=== PATIENT | female | born 1975 ===

== ENCOUNTER 2017-05-02 11:44 | Emergency (ER) | payer OTHER ==
[2017-05-02 11:59] VITALS: TEMP 98
--- NOTE | 2017-05-02 12:48 | ED PDOC ---
Upper Extremity Pain/Injury Time Seen by Provider: 05/02/17 12:30 Chief Complaint (Nursing): Upper Extremity Problem/Injury Chief Complaint (Provider): Left shoulder pain History Per: Patient, Family (son) History/Exam Limitations: language barrier (translated by son) Onset/Duration Of Symptoms: Days (x4) Current Symptoms Are (Timing): Still Present Quality: "Pain" Exacerbating Factor(s): Nothing Additional History Per: Patient Additional Complaint(s): Sanam Woods is a 42 year old female, with no significant past medical history, who presents to the emergency department accompanied by son complaining of non traumatic left shoulder pain onset for x4 days. She denies any injuries or doing any heavy lifting. She hasn't taken any medication for pain. Patient also reports having a lesion to the left shoulder for x10 yrs that will occasionally cause pain. She denies any other medical complaints. PMD: None provided. Past Medical History Reviewed: Historical Data, Nursing Documentation, Vital Signs Vital Signs: Last Vital Signs Temp 98.0 F 05/02/17 11:51 Pulse 87 05/02/17 11:51 Resp 16 05/02/17 11:51 BP 132/77 05/02/17 11:51 Pulse Ox 98 05/02/17 11:51 - Medical History PMH: Asthma - Surgical History Surgical History: No Surg Hx - Family History Family History: States: Unknown Family Hx - Social History Current smoker - smoking cessation education provided: No Alcohol: None Drugs: Denies - Home Medications Home Medications: Ambulatory Orders Medication Instructions Recorded Cyclobenzaprine [Flexeril] 10 mg PO TID #30 tab 05/02/17 - Allergies Allergies/Adverse Reactions: Allergies Allergy/AdvReac Type Severity Reaction Status Date / Time No Known Allergies Allergy Verified 05/02/17 11:55 Review of Systems ROS Statement: Except As Marked, All Systems Reviewed And Found Negative Musculoskeletal: Positive for: Shoulder Pain (non traumatic left. ) Skin: Positive for: Lesions (left shoulder) Physical Exam - Reviewed Nursing Documentation Reviewed: Yes Vital Signs Reviewed: Yes - Physical Exam Appears: Positive for: Non-toxic, No Acute Distress Head Exam: Positive for: ATRAUMATIC, NORMAL INSPECTION, NORMOCEPHALIC Skin: Positive for: Normal Color, Warm, Dry Eye Exam: Positive for: Normal appearance Neck: Positive for: Painless ROM Pulses-Radial (L): 2+ Pulses-Radial (R): 2+ Extremity: Positive for: Normal ROM (No reduced active or passive. No reduced flexion or extension. Normal rotation of pronation and supination in upper extremities.), Tenderness (left shoulder lateral edge of deltoid tenderness that radiates to left scapula.), Other (1x0.5cm keratotic lesion on dorsal side of left shoulder. ). Negative for: Deformity, Swelling Neurologic/Psych: Positive for: Alert, Oriented - ECG O2 Sat by Pulse Oximetry: 98 (RA) Pulse Ox Interpretation: Normal Medical Decision Making Medical Decision Making: Initial Impression: Tendonitis Initial Plan: --Flexeril 10 mg PO --Toradol 60 mg IM --Tylenol 325mg tab 650 mg PO --Shoulder left [RAD] --Reevaluation --Will order shoulder xray to rule out acute injuries. 14:16 Shoulder X-Ray show no fracture or dislocation. ~ Scribe Attestation: Documented by Erasto Guevara, acting as a scribe for Naman Hui PA-C. Provider Scribe Attestation: All medical record entries made by the Scribe were at my direction and personally dictated by me. I have reviewed the chart and agree that the record accurately reflects my personal performance of the history, physical exam, medical decision making, and the department course for this patient. I have also personally directed, reviewed, and agree with the discharge instructions and disposition. Disposition - Clinical Impression Clinical Impression: Shoulder pain, Shoulder pain, left - Disposition Referrals: Cresencio Fitch III, MD [Staff Provider] - Disposition: Routine/Home Disposition Time: 14:55 Condition: GOOD Additional Instructions: wear sling as often as possible, not necessary while sleeping follow up with ortho referral as reflcted below Prescriptions: Cyclobenzaprine [Flexeril] 10 mg PO TID #30 tab Instructions: Shoulder Pain (DC) Forms: [facility] [employer] (Indonesian) Print Language: ROMANIAN
--- NOTE | 2017-05-02 14:17 | RAD ---
PROCEDURE: Radiographs of the Left Shoulder HISTORY: r/o sep COMPARISON: No prior. FINDINGS: BONES: Normal. No fracture. JOINTS: Normal. Glenohumeral and acromioclavicular joints preserved. No osteoarthritis. SOFT TISSUES: Normal. OTHER FINDINGS: None. IMPRESSION: Normal radiographs of the left shoulder.
[2017-05-02 14:53] VITALS: BP 128/78; PULSE 70; RESP 18
[2017-05-02 14:54] VITALS: O2SAT 98
== END 2017-05-02 14:53 | disposition home or self-care (01) ==
LOC: H.ER 11:44
DX: M25.512 Pain in left shoulder (principal); J45.909 Unspecified asthma, uncomplicated
CPT/HCPCS: 73030; 81025; 96372; 99285; J1885

== ENCOUNTER 2017-07-23 12:16 | Emergency (ER) | payer SELFPAY ==
--- NOTE | 2017-07-23 12:37 | ED PDOC ---
HPI: Female Pain Time Seen by Provider: 07/23/17 12:31 Chief Complaint (Nursing): Female Genitourinary History Per: Patient Onset/Duration Of Symptoms: Days (1) Current Symptoms Are (Timing): Still Present Severity: Mild Pain Scale Rating Of: 2 Quality Of Discomfort: Cramping Additional Complaint(s): Vaginal bleeding assoc with lower abd cramping since yesterday. Found out yesterday she is approx 4 weeks Abnormal Vaginal Bleeding: Yes Past Medical History Vital Signs: Last Vital Signs Temp 98.2 F 07/23/17 12:20 Pulse 81 07/23/17 12:20 Resp 16 07/23/17 12:20 BP 110/72 07/23/17 12:20 Pulse Ox 96 07/23/17 12:20 - Medical History PMH: Asthma - Family History Family History: States: Unknown Family Hx - Home Medications Home Medications: Ambulatory Orders Medication Instructions Recorded Cyclobenzaprine [Flexeril] 10 mg PO TID #30 tab 05/02/17 - Allergies Allergies/Adverse Reactions: Allergies Allergy/AdvReac Type Severity Reaction Status Date / Time No Known Allergies Allergy Verified 07/23/17 12:20 Review of Systems Constitutional: Negative for: Fever Gastrointestinal: Positive for: Abdominal Pain Genitourinary Female: Positive for: Vaginal Bleeding Musculoskeletal: Negative for: Back Pain Physical Exam - Physical Exam Appears: Positive for: Non-toxic, No Acute Distress Skin: Positive for: Normal Color, Warm, DRY Gastrointestinal/Abdominal: Positive for: Bowel Sounds, Soft. Negative for: Tenderness Pelvic Exam: Positive for: External Exam Normal, Blood. Negative for: Mass, Tender Adnexa, Tender Uterus - Laboratory Results Result Diagrams: 07/23/17 13:05 - ECG O2 Sat by Pulse Oximetry: 96 Disposition - Clinical Impression Clinical Impression: Threatened miscarriage - Patient ED Disposition Is Patient to be Admitted: No Counseled Patient/Family Regarding: Studies Performed, Diagnosis, Need For Followup - Disposition [facility]errals[facility] [[facility]] Disposition: Routine/Home Disposition Time: 14:39 Condition: FAIR Additional Instructions: Regressa al emergencia para repetir la prueba de freddie Instructions: Threatened Miscarriage Forms: [employer] (Macedonian) Print Language: TURKISH
[2017-07-23 13:18] LABS: BASO % 0.5 % (0.0-2.0); EOS # 0.7 K/uL (0.0-0.7); EOS % 7.5 % (0.0-4.0); HEMOGLOBIN 13.4 g/dL (12.0-16.0); LYMPH # 2.8 K/uL (1.0-4.3); LYMPH % 29.2 % (20.0-40.0); MEAN CORPUSCULAR HEMOGLOBIN 29.9 pg (27.0-31.0); MEAN CORPUSCULAR HGB CONC 33.6 g/dL (33.0-37.0); MEAN PLATELET VOLUME 8.3 fl (7.2-11.7); MONO # 0.8 K/uL (0.0-0.8); NEUT # 5.3 K/uL (1.8-7.0); NEUT % 54.8 % (50.0-75.0); RBC 4.5 Mil/uL (3.80-5.20); RED CELL DISTRIBUTION WIDTH 12.8 % (11.5-14.5); WHITE BLOOD COUNT 9.7 K/uL (4.8-10.8)
--- NOTE | 2017-07-23 14:27 | US ---
PROCEDURE: OB Pelvic Ultrasound HISTORY: r/o ectopic COMPARISON: None available. FINDINGS: UTERUS: Uterus measures 9.9 x 4.6 x 5.0 cm. Anteverted. Normal in size and appearance. Endometrium measures 9 mm. No intrauterine gestational sac. CERVIX: Measures 4.6 cm. Long and closed. No cervical abnormality seen. RIGHT OVARY: Not visualized LEFT OVARY: Measures 3.2 x 2.8 x 2.4 cm. No solid mass. Normal flow. FREE FLUID: None. OTHER FINDINGS: None. IMPRESSION: No intrauterine visualized. Findings may represent early normal/abnormal with ectopic not excluded. Close clinical follow-up with serial pelvic sonography and serum beta HCG levels is recommended.
[2017-07-23 14:50] VITALS: BP 110/74; PULSE 74; RESP 20; TEMP 98; O2SAT 98
== END 2017-07-23 14:49 | disposition home or self-care (01) ==
LOC: H.ER 12:16
DX: N93.9 Abnormal uterine and vaginal bleeding, unspecified (principal); O20.0 Threatened abortion; O99.511 Diseases of the respiratory system complicating pregnancy, first trimester; J45.909 Unspecified asthma, uncomplicated; Z3A.01 Less than 8 weeks gestation of pregnancy

== ENCOUNTER 2017-07-25 09:34 | Emergency (ER) | payer SELFPAY ==
--- NOTE | 2017-07-25 12:23 | ED PDOC ---
HPI: Female Pain Time Seen by Provider: 07/25/17 09:45 Chief Complaint (Nursing): Abnormal Labs Chief Complaint (Provider): Abnormal Labs History Per: Patient History/Exam Limitations: no limitations Onset/Duration Of Symptoms: Days (x 5) Current Symptoms Are (Timing): Still Present Additional Complaint(s): 42 year old female presents to the ED with abnormal vaginal bleeding and for repeat bloodwork. She just found out she was 4 weeks . Patient was seen 2 days ago and had a Beta-HCG of 29. She reports vaginal spotting and is here for repeat HCG. PMD: [facility] Abnormal Vaginal Bleeding: Yes Last Menstral Period: 06/24/2017 Past Medical History Reviewed: Historical Data, Nursing Documentation, Vital Signs Vital Signs: Last Vital Signs Temp 98.1 F 07/25/17 09:39 Pulse 71 07/25/17 09:39 Resp 19 07/25/17 09:39 BP 102/62 07/25/17 09:39 Pulse Ox 97 07/25/17 09:39 - Medical History PMH: Asthma - Surgical History Surgical History: No Surg Hx - Family History Family History: States: Unknown Family Hx - Home Medications Home Medications: Ambulatory Orders Medication Instructions Recorded Cyclobenzaprine [Flexeril] 10 mg PO TID #30 tab 05/02/17 - Allergies Allergies/Adverse Reactions: Allergies Allergy/AdvReac Type Severity Reaction Status Date / Time No Known Allergies Allergy Verified 07/23/17 12:20 Physical Exam - Reviewed Nursing Documentation Reviewed: Yes Vital Signs Reviewed: Yes - Physical Exam Appears: Positive for: Non-toxic, No Acute Distress Head Exam: Positive for: ATRAUMATIC, NORMAL INSPECTION, NORMOCEPHALIC Skin: Positive for: Normal Color, Warm, Dry Eye Exam: Positive for: EOMI, Normal appearance, PERRL Neck: Positive for: Normal, Painless ROM, Supple Cardiovascular/Chest: Positive for: Regular Rate, Rhythm. Negative for: Murmur Respiratory: Positive for: Normal Breath Sounds. Negative for: Respiratory Distress Gastrointestinal/Abdominal: Positive for: Normal Exam, Soft. Negative for: Tenderness Neurologic/Psych: Positive for: Alert, Oriented - ECG O2 Sat by Pulse Oximetry: 97 (RA) Pulse Ox Interpretation: Normal Medical Decision Making Medical Decision Making: Time; 10:24 Impression miscarriage Initial Plan: --Beta- HCG Beta-HCG is 12. rh pos --Discussed results with patient and explained that she is having ongoing miscarriage. Also advised she should follow up with [facility] in 2 days, until Beta-HCG goes down to 0. Scribe Attestation: Documented by Keysha Singh, acting as a scribe for Essie Elkins MD Provider Scribe Attestation: All medical record entries made by the Scribe were at my direction and personally dictated by me. I have reviewed the chart and agree that the record accurately reflects my personal performance of the history, physical exam, medical decision making, and the department course for this patient. I have also personally directed, reviewed, and agree with the discharge instructions and disposition. Disposition - Clinical Impression Clinical Impression: Miscarriage - Patient ED Disposition Is Patient to be Admitted: No Counseled Patient/Family Regarding: Studies Performed, Diagnosis, Need For Followup - Disposition Referrals: [facility] [Outside] [facility] [Outside] Disposition: Routine/Home Disposition Time: 11:00 Condition: IMPROVED Additional Instructions: follow up in the [facility] in 2 days return to the ED with any worsening or concerning symptoms Instructions: Miscarriage Forms: [employer] (Uzbek) Print Language: URDU
[2017-07-25 12:28] VITALS: BP 110/68; PULSE 70; RESP 16; TEMP 98.2
[2017-07-25 12:34] VITALS: O2SAT 97
== END 2017-07-25 12:28 | disposition home or self-care (01) ==
LOC: H.ER 09:34
DX: O03.9 Complete or unspecified spontaneous abortion without complication (principal); Z3A.01 Less than 8 weeks gestation of pregnancy; J45.909 Unspecified asthma, uncomplicated; O99.511 Diseases of the respiratory system complicating pregnancy, first trimester

== ENCOUNTER 2017-11-07 11:25 | Emergency (ER) | payer SELFPAY ==
[2017-11-07 15:50] LABS: BASO # 0.1 K/uL (0.0-0.2); BASO % 0.7 % (0.0-2.0); EOS # 0.9 K/uL (0.0-0.7); EOS % 9.7 % (0.0-4.0); HEMOGLOBIN 13.4 g/dL (12.0-16.0); LYMPH # 2.7 K/uL (1.0-4.3); LYMPH % 29.1 % (20.0-40.0); MEAN CELL VOLUME 88.9 fl (81.0-99.0); MEAN CORPUSCULAR HEMOGLOBIN 29.8 pg (27.0-31.0); MEAN CORPUSCULAR HGB CONC 33.6 g/dL (33.0-37.0); MEAN PLATELET VOLUME 8.6 fl (7.2-11.7); MONO # 0.7 K/uL (0.0-0.8); MONO % 7.1 % (0.0-10.0); NEUT # 4.9 K/uL (1.8-7.0); NEUT % 53.4 % (50.0-75.0); RBC 4.48 Mil/uL (3.80-5.20); RED CELL DISTRIBUTION WIDTH 13.1 % (11.5-14.5); WHITE BLOOD COUNT 9.2 K/uL (4.8-10.8)
[2017-11-07 15:56] LABS: SQUAMOUS EPITHIAL 3 /hpf (0-5); URINE BACTERIA RARE (<OCC); URINE BILIRUBIN NEGATIVE (NEGATIVE); URINE BLOOD NEGATIVE (NEGATIVE); URINE CLARITY SLIGHTY-CLOUDY (Clear); URINE COLOR YELLOW (YELLOW); URINE GLUCOSE (UA) NEG (Normal); URINE LEUKOCYTE ESTERASE NEG Leu/uL (Negative); URINE PROTEIN NEGATIVE (NEGATIVE); URINE UROBILINOGEN 0.2-1.0 mg/dL (0.2-1.0)
[2017-11-07 16:52] LABS: BLOOD UREA NITROGEN 9 mg/dl (7-17); GFR NON-AFRICAN AMERICAN > 60
[2017-11-07 16:53] LABS: ALB/GLOB RATIO 1.2 (1.0-2.1); ALBUMIN 4.2 g/dL (3.5-5.0); CALCIUM 10.1 mg/dL (8.4-10.2)
[2017-11-07 16:54] LABS: ALT/SGPT 55 U/L (9-52); AST/SGOT 62 U/L (14-36)
[2017-11-07 17:11] VITALS: RESP 19; O2SAT 98
[2017-11-07 17:13] VITALS: BP 108/67; PULSE 88; TEMP 97.6
--- NOTE | 2017-11-08 09:45 | US ---
Date of service: 11/07/2017 PROCEDURE: OB Pelvic Ultrasound HISTORY: Pelvic pain LMP: 09/23/2017 COMPARISON: Pelvic ultrasound dated 08/15/2017 FINDINGS: UTERUS: Uterus measures 10.4 x 7.0 x 5.8 cm. Anteverted. Normal in size and appearance. Small cystic structure within the endometrium measuring 5 mm, which may represent a gestational sac. CERVIX: Measures 4.2 cm. Long and closed. No cervical abnormality seen. RIGHT OVARY: Not visualized LEFT OVARY: Not visualized FREE FLUID: None. OTHER FINDINGS: None. IMPRESSION: 5 mm cystic structure in the endometrium which may represent a small gestational sac. Findings may represent early normal/abnormal with ectopic not excluded. Close clinical follow-up with serial pelvic sonography and serum beta HCG levels is recommended. Nonvisualization of the ovaries.
== END 2017-11-07 17:13 | disposition home or self-care (01) ==
LOC: H.ER 11:25
DX: O20.0 Threatened abortion (principal); Z3A.01 Less than 8 weeks gestation of pregnancy

== ENCOUNTER 2017-11-10 10:52 | Emergency (ER) | payer SELFPAY ==
[2017-11-10 11:00] VITALS: TEMP 98.4
--- NOTE | 2017-11-10 11:36 | ED PDOC ---
HPI: Female Pain Time Seen by Provider: 11/10/17 11:15 Chief Complaint (Nursing): Abnormal Labs Chief Complaint (Provider): Follow up History Per: Patient, [employer] Former (Raghav #[id number]) History/Exam Limitations: no limitations Onset/Duration Of Symptoms: Days (x 3) Current Symptoms Are (Timing): Better Additional Complaint(s): 42 year old female (A1) presents to the ED for repeat Beta-HCG and U/S evaluation. Patient was treated here on 11/07 for a threatened and was advised to follow up 72 hours later. She has an upcoming appointment at [facility] on 11/23. Denies current vaginal bleeding, fever, N/V/D, and abdominal pain. No other complaints reported. PMD: [facility] Last Menstral Period: 09/23/2017 Past Medical History Reviewed: Historical Data, Nursing Documentation, Vital Signs Vital Signs: Last Vital Signs Temp 98.4 F 11/10/17 10:59 Pulse 84 11/10/17 10:59 Resp 17 11/10/17 10:59 BP 115/66 11/10/17 10:59 Pulse Ox 97 11/10/17 10:59 - Medical History PMH: Asthma - Surgical History Surgical History: No Surg Hx - Family History Family History: States: Unknown Family Hx - Home Medications Home Medications: Ambulatory Orders Medication Instructions Recorded RX: Cyclobenzaprine [Flexeril] 10 mg PO TID #30 tab 05/02/17 - Allergies Allergies/Adverse Reactions: Allergies Allergy/AdvReac Type Severity Reaction Status Date / Time No Known Allergies Allergy Verified 11/10/17 11:13 Review of Systems ROS Statement: Except As Marked, All Systems Reviewed And Found Negative Constitutional: Negative for: Fever Gastrointestinal: Negative for: Abdominal Pain Genitourinary Female: Negative for: Vaginal Bleeding Physical Exam - Reviewed Nursing Documentation Reviewed: Yes Vital Signs Reviewed: Yes - Physical Exam Comments: GENERAL APPEARANCE: Patient is awake, alert, oriented x 3, in no acute distress. Resting comfortably. SKIN: Warm, dry; (-) cyanosis. ENMT: Mucous membranes moist. Airway patent: (-) stridor. NECK: Supple, FROM CHEST AND RESPIRATORY: (-) wheezing; (-) rales, (-) rhonchi, (-) rub; breath sounds equal bilaterally. Respirations even and nonlabored. HEART AND CARDIOVASCULAR: (-) irregularity ABDOMEN AND GI: Soft; (-) tenderness (-) guarding (-) distention (-) CVA tenderness EXTREMITIES: (-) deformity, (-) edema. NEURO AND PSYCH: Mental status as above; (-) focal findings. Gait: steady. Speech: clear. (-) facial asymmetry (-) aphasia - Laboratory Results Result Diagrams: 11/10/17 12:00 - ECG O2 Sat by Pulse Oximetry: 97 (RA) Pulse Ox Interpretation: Normal Medical Decision Making Medical Decision Makin:30 Clinical Impression: Threatened --beta-HCG --OB transvag US --CBC --Re-evaluation 1135 Upon review of prior charts, patient with B+ blood. 1255 U/S reviewed, report follows PROCEDURE: OB Pelvic Ultrasound HISTORY: seen on 11/07 for threatened - follow up COMPARISON: None available. FINDINGS: UTERUS: Intrauterine gestational sac identified. Gestational sac diameter 8 mm, out of range for age determination. No subchorionic hemorrhage. No pole. No cardiac activity detected. Elena-gestational hemorrhage: None. Uterus measures 10.9 x 6.6 x 5.8 cm. No mass CERVIX: Long and closed. No cervical abnormality seen. RIGHT OVARY: Not visualized LEFT OVARY: Measures 4.0 x 2.1 x 2.5 cm. No mass. Normal flow. FREE FLUID: None. OTHER FINDINGS: None. IMPRESSION: Intrauterine gestational sac without detection of pole. Sac diameter too small to determine age. Followup with transvaginal ultrasound and serial beta HCG evaluation is advised. No subchorionic hemorrhage. Otherwise unremarkable examination. Beta Quant from visit 11/07/17: 3493.6 Beta Quant today: 7479.5 CBC unremarkable. On re-evaluation, patient offers no additional complaints. On exam, patient remains AAOx3, in no acute distress. Lungs CTA, cardiac RRR, abdomen soft, nontender, repeat neuro exam shows no focal findings. Vitals stable. Advised to continue vitamins. Lab/Diagnostic results d/w with the patient in great detail using diesel powerplant mechanic #[id number]. Diagnosis of threatened d/w patient. Based on history, exam, and diagnostic results, plan will be for outpatient follow up with OBGYN. Return to ED in 48-72 hours for repeat evaluation. Patient instructed to follow up with PMD / referral provided / the clinic in 1-2 days without fail. Return to the emergency room at any time for any new or worsening symptoms. Patient states she agrees with and understandings discharge instructions. States that she agrees with the plan and disposition. Verbalized and repeated discharge instructions and plan. I have given the patient opportunity to ask any additional questions. Scribe Attestation: Documented by Keysha Singh, acting as a scribe for Jazz Samayoa PA-C Provider Scribe Attestation: All medical record entries made by the Scribe were at my direction and personally dictated by me. I have reviewed the chart and agree that the record accurately reflects my personal performance of the history, physical exam, medical decision making, and the department course for this patient. I have also personally directed, reviewed, and agree with the discharge instructions and disposition. Disposition - Clinical Impression Clinical Impression: Threatened miscarriage - Patient ED Disposition Is Patient to be Admitted: No Counseled Patient/Family Regarding: Studies Performed, Diagnosis, Need For Followup - Disposition Referrals: [facility] [Outside] Disposition: Routine/Home Disposition Time: 12:59 Condition: STABLE Additional Instructions: Por favor regrese al Departamento de Emergencia en 48-72 horas para emi evaluacin repetida. La atencin mdica de emergencia que recibi hoy estaba dirigida a faith sntomas agudos. Si se le recetaron medicamentos, llnelos en la farmacia y tmelos segn las indicaciones. Faith sntomas pueden tardar varios carreno en resolverse. Regrese al departamento de emergencia si faith sntomas empeoran, no mejoran o si tiene algn otro problema. Comunquese con traore mdico / proveedor / clnica remitido en 2 carreno para emi evaluacin adicional. El tratamiento en el departamento de emergencia no puede reemplazar la atencin mdica en curso por un mdico de atencin primaria fuera del departamento de emergencia. Instructions: Threatened Miscarriage, Bleeding With Forms: [employer] (Italian) Print Language: CAY[place] ISLANDER - POA Present On Arrival: None Results - Lab Results Lab Results: 11/10/17 11/10/17 12:00 12:00 WBC 8.6 RBC 4.38 Hgb 13.0 Hct 39.1 MCV 89.3 MCH 29.6 MCHC 33.2 RDW 13.3 Plt Count 233 MPV 8.4 Neut % (Auto) 55.9 Lymph % (Auto) 28.6 [place] % (Auto) 7.3 Eos % (Auto) 7.7 H Baso % (Auto) 0.5 Neut # (Auto) 4.8 Lymph # (Auto) 2.5 [place] # (Auto) 0.6 Eos # (Auto) 0.7 Baso # (Auto) 0.0 Beta HCG, Quant 7479.50
[2017-11-10 12:08] LABS: BASO % 0.5 % (0.0-2.0); EOS # 0.7 K/uL (0.0-0.7); EOS % 7.7 % (0.0-4.0); LYMPH # 2.5 K/uL (1.0-4.3); LYMPH % 28.6 % (20.0-40.0); MEAN CELL VOLUME 89.3 fl (81.0-99.0); MEAN CORPUSCULAR HEMOGLOBIN 29.6 pg (27.0-31.0); MEAN CORPUSCULAR HGB CONC 33.2 g/dL (33.0-37.0); MEAN PLATELET VOLUME 8.4 fl (7.2-11.7); MONO # 0.6 K/uL (0.0-0.8); MONO % 7.3 % (0.0-10.0); NEUT # 4.8 K/uL (1.8-7.0); NEUT % 55.9 % (50.0-75.0); NRBC % 0.1 % (0.0-0.0); RBC 4.38 Mil/uL (3.80-5.20); RED CELL DISTRIBUTION WIDTH 13.3 % (11.5-14.5); WHITE BLOOD COUNT 8.6 K/uL (4.8-10.8)
--- NOTE | 2017-11-10 12:52 | US ---
PROCEDURE: OB Pelvic Ultrasound HISTORY: seen on 11/07 for threatened - follow up COMPARISON: None available. FINDINGS: UTERUS: Intrauterine gestational sac identified. Gestational sac diameter 8 mm, out of range for age determination. No subchorionic hemorrhage. No pole. No cardiac activity detected. Elena-gestational hemorrhage: None. Uterus measures 10.9 x 6.6 x 5.8 cm. No mass CERVIX: Long and closed. No cervical abnormality seen. RIGHT OVARY: Not visualized LEFT OVARY: Measures 4.0 x 2.1 x 2.5 cm. No mass. Normal flow. FREE FLUID: None. OTHER FINDINGS: None. IMPRESSION: Intrauterine gestational sac without detection of pole. Sac diameter too small to determine age. Followup with transvaginal ultrasound and serial beta HCG evaluation is advised. No subchorionic hemorrhage. Otherwise unremarkable examination.
[2017-11-10 13:20] VITALS: BP 124/74; PULSE 81; RESP 18
[2017-11-11 12:37] VITALS: O2SAT 97
== END 2017-11-10 13:25 | disposition home or self-care (01) ==
LOC: H.ER 10:52
DX: O20.0 Threatened abortion (principal)

== ENCOUNTER 2017-11-13 09:29 | Emergency (ER) | payer SELFPAY ==
[2017-11-13 09:37] VITALS: BP 99/61; PULSE 88; RESP 18; TEMP 97.6; O2SAT 98
[2017-11-13 09:38] VITALS: BMI 36.6
--- NOTE | 2017-11-13 10:09 | ED PDOC ---
HPI: Female Pain Time Seen by Provider: 11/13/17 09:49 History Per: Patient History/Exam Limitations: no limitations Onset/Duration Of Symptoms: Hrs Additional Complaint(s): Sanam Woods is a 42 year old female, with no significant past medical history, who presents to the emergency department for repeat Beta-HCG. Patient had an ultrasound done on 11/10 which revealed a gestational sac with no heart activity and no pulse identified. Patient does report a mild back pain but denies any vaginal bleeding or abdominal pain. No further medical complaints. PMD: None provided. Past Medical History Reviewed: Historical Data, Nursing Documentation, Vital Signs Vital Signs: Last Vital Signs Temp 97.6 F 11/13/17 09:37 Pulse 88 11/13/17 09:37 Resp 18 11/13/17 09:37 BP 99/61 L 11/13/17 09:37 Pulse Ox 98 11/13/17 09:37 - Medical History PMH: Asthma - Surgical History Surgical History: No Surg Hx - Family History Family History: States: Unknown Family Hx - Home Medications Home Medications: Ambulatory Orders Medication Instructions Recorded Cyclobenzaprine [Flexeril] 10 mg PO TID #30 tab 05/02/17 - Allergies Allergies/Adverse Reactions: Allergies Allergy/AdvReac Type Severity Reaction Status Date / Time No Known Allergies Allergy Verified 11/10/17 11:13 Review of Systems ROS Statement: Except As Marked, All Systems Reviewed And Found Negative Gastrointestinal: Negative for: Abdominal Pain Genitourinary Female: Negative for: Vaginal Bleeding Musculoskeletal: Positive for: Back Pain (mild) Physical Exam - Reviewed Nursing Documentation Reviewed: Yes Vital Signs Reviewed: Yes - Physical Exam Appears: Positive for: No Acute Distress Head Exam: Positive for: ATRAUMATIC, NORMOCEPHALIC Skin: Positive for: Normal Color, Warm, Dry Eye Exam: Positive for: Normal appearance, EOMI, PERRL Neck: Positive for: Painless ROM Cardiovascular/Chest: Positive for: Regular Rate, Rhythm. Negative for: Murmur Respiratory: Positive for: Normal Breath Sounds. Negative for: Respiratory Distress Gastrointestinal/Abdominal: Positive for: Normal Exam, Soft. Negative for: Tenderness, Guarding, Rebound Back: Positive for: Normal Inspection. Negative for: L CVA Tenderness, R CVA Tenderness Extremity: Positive for: Normal ROM (upper and lower extremities). Negative for: Deformity, Swelling Neurologic/Psych: Positive for: Alert, Oriented, Gait (steady) - ECG O2 Sat by Pulse Oximetry: 98 (RA) Pulse Ox Interpretation: Normal Medical Decision Making Medical Decision Making: Time: 09:49 Initial Plan: --Beta-HCG, Quantitative --Reevaluation ----- Scribe Attestation: Documented by Erasto Guevara, acting as a scribe for Aric Garcia MD. Provider Scribe Attestation: All medical record entries made by the Scribe were at my direction and personally dictated by me. I have reviewed the chart and agree that the record accurately reflects my personal performance of the history, physical exam, medical decision making, and the department course for this patient. I have also personally directed, reviewed, and agree with the discharge instructions and disposition. Disposition - Clinical Impression Clinical Impression: Threatened miscarriage - Patient ED Disposition Is Patient to be Admitted: No Counseled Patient/Family Regarding: Studies Performed, Diagnosis, Need For Followup - Disposition Referrals: FAMILY PROVIDER,NO [Primary Care Provider] - [facility] [Outside] Disposition: Routine/Home Disposition Time: 15:07 Condition: FAIR Instructions: Threatened Miscarriage Print Language: UKRAINIAN
--- NOTE | 2017-11-13 14:29 | US ---
Date of service: 11/13/2017 PROCEDURE: First trimester ultrasound HISTORY: r/o ectopic COMPARISON: 11/10/2017 TECHNIQUE: Standard protocol for this study/examination. FINDINGS: LMP: 09/23/2017 Prior examinations from the current : None TECHNIQUE: Real-time 2D imaging, duplex and color Doppler. FINDINGS: Cardiac activity: Present Rate: 119 BPM Measurements: [place] rump length: 0.21 cm Gestational age based on CRL 5 weeks 5 days Gestational age 5 weeks 3 days based on gestational sac measurement 1.25 cm Gestational age derived from LMP: 7 weeks 2 days ALAN based on LMP: 06/30/2018 ALAN based on biometry: 07/12/2018 Gestational concordance documented Yolk sac identified Cervix: No Cervical abnormalities: Negative examination for cervical dilatation or effacement. Closed cervix measuring 4.64 cm Subchorionic hemorrhage: None UTERUS: 4.9 x 5.7 x 8.7 cm. ADNEXA: Right: 2.8 x 4.4 x 4.5 cm. Simple cyst 2.4 x 2.7 x 3.7 normal Doppler arterial waveform documented. Left: 1 x 1.4 x 1.7 cm. Normal Doppler arterial waveform documented Fluid in the cul-de-sac: None IMPRESSION: Five weeks 4 days live intrauterine gestation. Gestational concordance documented.
== END 2017-11-13 15:30 | disposition home or self-care (01) ==
LOC: H.ER 09:29 → SUPCPDRO 09:29 → H.ER 15:30
DX: O20.0 Threatened abortion (principal)

== ENCOUNTER 2018-06-24 18:35 | Inpatient (IN) | payer SELFPAY ==
[2018-06-24 19:20] VITALS: BMI 39.6
[2018-06-24 19:41] LABS: BASO % 0.3 % (0.0-2.0); EOS # 0.6 K/uL (0.0-0.7); HEMOGLOBIN 11.8 g/dL (12.0-16.0); LYMPH # 2.4 K/uL (1.0-4.3); LYMPH % 24.4 % (20.0-40.0); MEAN CELL VOLUME 88.7 fl (81.0-99.0); MEAN CORPUSCULAR HEMOGLOBIN 29.7 pg (27.0-31.0); MEAN CORPUSCULAR HGB CONC 33.5 g/dL (33.0-37.0); MEAN PLATELET VOLUME 9.3 fl (7.2-11.7); MONO # 0.7 K/uL (0.0-0.8); MONO % 7.5 % (0.0-10.0); NEUT % 61.8 % (50.0-75.0); RBC 3.97 Mil/uL (3.80-5.20); RED CELL DISTRIBUTION WIDTH 13.4 % (11.5-14.5); WHITE BLOOD COUNT 9.8 K/uL (4.8-10.8)
--- NOTE | 2018-06-24 21:16 | OBDCSUM ---
Datetime: 06/24/2018 20:38 Discharged to, Provider: Home Follow up at, Provider: [facility] Disch Instr Activity: Normal activity Disch Instr Diet: Regular Discharge Instructions, Provider: Routine instructions given Discharge Time: 06/24/2018 20:39 Follow up in weeks, Provider: 06/28 for induction Disch Referrals: None Contraception discussed, Prov: Yes Discharge Diagnosis Prov Other: NST
[2018-06-25 01:54] VITALS: BP 104/68; PULSE 80; TEMP 98.2
== END 2018-06-24 20:48 | disposition home or self-care (01) | DRG 565 ==
LOC: H.EROB2 18:35 → H.L&D 19:20
PROVIDERS: ADMIT Obstetrics & Gynecology; ATTEND Obstetrics & Gynecology
PROC: 4A1HXCZ Monitoring of Products of Conception, Cardiac Rate, External Approach (ICD-10-PCS; principal; 2018-06-24)
DX: O47.1 False labor at or after 37 completed weeks of gestation (principal); O09.523 Supervision of elderly multigravida, third trimester; Z3A.40 40 weeks gestation of pregnancy

== ENCOUNTER 2018-06-27 08:59 | Inpatient (IN) | payer MEDICAID, SELFPAY ==
[2018-06-27 09:23] VITALS: BMI 38.7
[2018-06-27] MEDS ORDERED: Oxytocin 30 UNIT in NS 500 ml 30 UNITS/500 ML BAG IV ONE ×2 (09:23→15:13)
[2018-06-27] MEDS ORDERED: Lactated Ringer's 1,000 ML IV ONE (09:23)
[2018-06-27] MEDS ORDERED: Lactated Ringer's 1,000 ML IV SCH (09:30)
[2018-06-27 09:56] LABS: BASO % 0.5 % (0.0-2.0); EOS # 0.4 K/uL (0.0-0.7); EOS % 5.6 % (0.0-4.0); HEMOGLOBIN 12.4 g/dL (12.0-16.0); LYMPH # 1.8 K/uL (1.0-4.3); LYMPH % 24.9 % (20.0-40.0); MEAN CELL VOLUME 89.4 fl (81.0-99.0); MEAN CORPUSCULAR HGB CONC 33.5 g/dL (33.0-37.0); MEAN PLATELET VOLUME 9.1 fl (7.2-11.7); MONO # 0.5 K/uL (0.0-0.8); MONO % 7.6 % (0.0-10.0); NEUT # 4.4 K/uL (1.8-7.0); NEUT % 61.4 % (50.0-75.0); RBC 4.15 Mil/uL (3.80-5.20); RED CELL DISTRIBUTION WIDTH 13.1 % (11.5-14.5); WHITE BLOOD COUNT 7.2 K/uL (4.8-10.8)
[2018-06-27] MEDS ORDERED: Fentanyl/Bupivacaine HCl 250 ML EPI ONE (13:38)
[2018-06-27] MEDS ORDERED: Bupivacaine HCl 0.5% PF (30 ml) Inj ONE (13:45)
[2018-06-27] MEDS ORDERED: Oxycodone/Acetaminophen 5/325 mg Tab PO PRN ×4 (15:16→18:54)
--- NOTE | 2018-06-27 15:43 | OBDS ---
DELIVERY PERSONNEL Delivery Doctor: Greg Zepeda .MD Scrub Nurse: Yolanda Leary Academic Support Coordinator: Juan Carlos Barlow RN Anesthesiologist: S.MD Dani Resident: Kristy Arango(resident) MATERNAL INFORMATION Delivery Anesthesia: Epidural Placenta Cultured: No Maternal Complications: None Provider Comments: 43 year old presented at 39.4 for IOL secondary to AMA. Progressed to normal spontaneous vaginal delivery of live female infact at 15:09, position NELY over intact perineum with epidural anesthesia. Infant placed on maternal abdomen and delayed cord clamping was performed. s 9 _ 9, no excessive resuscitation required. No meconium or nuchal cord. Spontaneous delivery of [place] at 15:13. Vagina and perineum was intact. QBL 100cc. Mom and baby are in stable condition and w ill be recovered in post . Attending Dr. Zepeda was present for delivery. Therese Pemberton MD OB Fellow Patient was seen with the resident I agree with the note was present for the delivery LABOR SUMMARY EDC: 06/30/2018 00:00 No. Babies in Womb: 1 Attempted: No Labor Anesthesia: Epidural LABOR INFORMATION Reason for Induction: Other Reason for Induction Other: AMA/ObesityHad mandy injection Onset of Labor: 06/27/2018 14:05 Complete Dilatation: 06/27/2018 14:55 Oxytocin: Induction Group B Beta Strep: Negative Antibiotics # of Doses: n/a Antibiotics Time of Last Dose: n/a Steroids Given: None Reason Steroids Not Administered: Not Applicable MEMBRANES Membranes Rupture Method: Artificial Rupture of Membranes: 06/27/2018 14:55 Length of Rupture (hrs): 0.23 Amniotic Fluid Color: Clear Amniotic Fluid Amount: Small Amniotic Fluid Odor: Normal STAGES OF LABOR Stage 1 hrs: 0 Stage 1 min: 50 Stage 2 hrs: 0 Stage 2 min: 14 Stage 3 hrs: 0 Stage 3 min: 4 Total Time in Labor hrs: 1 Total Time in Labor min: 8 VAGINAL DELIVERY Episiotomy: None Laceration Extension: N/A Laceration Type: None Laceration Repair: Not Applicable Initial Vag Sponge Count: laps=5 with ring and 1 without ring and sponges=10 Final Vag Sponge Count: laps=5 with rings and 1 without ring and sponges =10 Initial Vag Sharps Count: 0 Final Vag Sharps Count: 0 Sponge Count Correct: Yes Sharps Count Correct: N/A Count Comment: laps and sponges count correct BABY A INFORMATION Delivery Date/Time: 06/27/2018 15:09 Method of Delivery: Vaginal : N/A Forceps: N/A Vacuum Extraction: N/A Shoulder Dystocia : No SHOULDER DYSTOCIA BABY A Delivery Date/Time: 06/27/2018 15:09 PRESENTATION/POSITION BABY A Presentation: Cephalic Cephalic Presentation: Vertex Breech Presentation: N/A PLACENTA INFORMATION BABY A Placenta Delivery Time : 06/27/2018 15:13 Placenta Method of Delivery: Spontaneous Placenta Status: Delivered SCORES BABY A Heart Rate 1 min: >100 bpm Resp Effort 1 min: Good Cry Reflex Irritability 1 min: Cough or Sneeze or Pulls Away Muscle Tone 1 min: Active Motion Color 1 min: Body [place], Extremities Blue SCORE 1 MIN: 9 Heart Rate 5 min: >100 bpm Resp Effort 5 min: Good Cry Reflex Irritability 5 min: Cough or Sneeze or Pulls Away Muscle Tone 5 min: Active Motion Color 5 min: Body [place], Extremities Blue Resuscitation Effort 5 min: N/A SCORE 5 MIN: 9 INFORMATION BABY A Gestational Age at Delivery: 39.4 Infant Outcome : Liveborn Infant Condition : Stable Sex: Female IDENTIFICATION/MEDS BABY A ID Band Number: [id number] CORD INFORMATION BABY A Nuchal Cord : N/A Nuchal Cord Other: n/a True Knot: n/a Cord pH Baby Arterial: n/a Cord pH Baby Venous: n/a Cord Blood Taken: Yes Banking/Donate Info: n/a Suction: None
--- NOTE | 2018-06-27 15:47 | OBHP ---
Datetime: 06/27/2018 13:00 FHR - Baseline A Provider: 140 Membranes, Provider: Intact Vital Signs Provider: Reviewed; Within Normal Limits NICHD Variability Prov Fetus A: Moderate 6-25bpm NICHD Accel Fetus A IP Provider: [id number] NICHD Decel Fetus A IP Provider: None Dilatation, Provider: 5 Effacement, Provider: 80 Station, Provider: -2 Datetime: 06/27/2018 09:32 IP Adm Impression: Term, intrauterine IP Chief Complaint Other: scheduled IOL IP Admit Plan: Admit to unit; Initiate labor induction protocol Admit Comment, IP Provider: HPI: Sanam is a 43 year old here for IOL secondary to AMA and ob esity. Patient has a history of 2 deliveries and was on Velma until 36 weeks of this pregnan cy. She has had routine care with multiple OB ultrasounds and no other complications. Denies any current pain or contractions. Good movement. ALAN: 06/30/2018 by LMP, her LMP was irregular but she had an 11 week 6 days US with an ALAN of 07/05, which was within 7 days of her LMP History G1: 1991, born at 40 weeks, male 7 lbs G2: 1994, born at 34 weeks, male infant 4 lbs G3: 1997, born at 40 weeks, male infant 8 lbs G4: 2001, born at 40 weeks, female infant 8 lbs G5: 2012, born at 35 weeks, male 5 lbs G6: 2015 TAB G7: 2018 TAB PMH Denies PSH Denies Medications PNV [place] (stopped at 36 weeks) Allergies NKDA Social Denies any alcohol, tobacco or drug use. She is and her is the FOB. FH Not significant PHYSICAL EXAM Vitals reviewed Labs: B+, Ab neg, HIV/RPR nonreactive, Hepatitis B neg, 1 hr GTT abnormal but 3 hr f/u was normal, GC/Chlamydia neg, GBS NEGATIVE Fetus is vertex by palpation during cervical exam ASSESSMENT/PLAN: 43 year old at 39.4 weeks here for IOL d/t AMA and obesity - Watson score = 7, patient can start pitocin at this time - Vertex presentation, anticipate vaginal delivery soon - Medications will be present in anticipation of possible heavy bleeding due to grandmultiparity Plan discussed with attending, Dr. Zepeda. Therese Pemberton MD OB Fellow The patient was seen with the resident I agree with the note Abdomen - PN: Normal Lungs - PN: Normal Heart - PN: Normal HEENT - PN: Normal General - PN: Normal Presentation-Admit: Vertex Gestation - Est Wks by US: 39.4 IP Indication for Induction Oth: AMA Datetime: 06/24/2018 21:08 Pelvic Type - PN: Adequate Extremities - PN: Normal Back - PN: Normal Breast - PN: Normal Thyroid - PN: Normal Neurologic - PN: Normal Contraction Comments Provider: none EGA AdmitDate IP: 39.1 IP Chief Complaint: Scheduled induction of labor Genitourinary Exam: Normal DTRs - PN: Normal
--- NOTE | 2018-06-28 12:57 | OBPPN ---
Datetime: 06/28/2018 06:00 PP Pain Prov: Within normal limits PP Nausea Prov: Denies PP Flatus Prov: Yes PP BM Prov: No PP Breasts Prov: Not Done PP Heart Prov: Normal PP Lungs Prov: Normal PP Abdomen/Uterus Prov: Normal PP Lochia Prov: Normal PP Vulva/Perineum Prov: Not Done PP CVA Tenderness Prov: Not Done PP Extremities Prov: Normal PP C/S Incision Prov: Not Applicable PP Progress Prov: Normal PP Impression Prov: Normal progression PP Plan Prov: Continue present management PP Progress Note Prov: S: 43 y/o female doing well on PPD1. Patient seen and examined at bedside. Patient passing Flatus, no BM. Tolerating liquid diet. Lochia like menses. No breast feeding difficulties. O:Physical exam: Gen: lying in bed comfortably Heart: S1S2 present, RRR Lungs: normal breathing pattern, clear to auscultation bilaterally Abd: normal bowel sounds, soft, non-tender, fudus firm at umbilicus. Extremities: no swelling/erythema/tenderness Psych: appropriate mood, good eye contact A/P: 43 year old female doing well on PPD1 1. Continue orders 2. Ibuprofen 600 mg PO Q6H PRN 3. Regular diet 4. Encourage ambulation/ 5. Possible discharge on 06/29/18 Case discussed with attending evie Ulloa Attending addendum: I saw and examined the patient at bedside myself this morning. I reviewed the resident note above and agree with findings and management. Jihan Landon MD Vital Signs Provider PP: Reviewed; Within Normal Limits
--- NOTE | 2018-06-29 08:18 | OBDCSUM ---
Datetime: 06/29/2018 07:17 Discharged to, Provider: Home Follow up at, Provider: ARMANDO Disch Instr Activity: Normal activity Disch Instr Diet: Regular Discharge Instructions, Provider: Routine instructions given Discharge Diagnosis, Provider: Term Delivered Discharge Time: 06/29/2018 10:00 Follow up in weeks, Provider: 4 weeks Disch Referrals: None Contraception discussed, Prov: Yes Disch Activity Restrictions: No exercising; No lifting; No sexual activity; Nothing in vagina - Inte rcourse, tampons, douche Discharge Comment, Provider: 43 y/o female s/p NVD on 06/27/18 at 39.4 wk GA. [place]: female 9/9 Post- D/C Summary: No OB complications. No complications during post- period. Lochia i s less than menses. Pt able to pass flatus and BM, voiding well and able to ambulate without difficul ty. Tolerating regular diet w/o N/V. Fundus firm below umbilicus level. Discharge Instructions given to patient: Encourage PNV 1 tab po q/day Ibuprofen 600 mg 1 tab po prn q4-6 if moderate pain. C/W PN vitamin 1 tab QD Ambulatory with caution, nothing per vagina/sex for 4 weeks, no heavy lifting, avoid stairs, if ex cessive bleeding or fever without relief from Tylenol go to ED ED precautions: If excessive bleeding, pain that does not get relief, fever >100.4, palpitations, SOB, CP or other concerning symptom go to the ED. PT was urged if feeling sad, mood swing, depression, neglect of baby, suicidal thoughts, homicidal thoughts go to ER or call 911 for help evie Ulloa Case discussed with attending Attending addendum: I saw and examined the patient at bedside myself this morning. I reviewed the resident note above and agree with findings and management DC home today. preeclampsia, infection, and depression precautions given. Condoms for contraception. f/u in office in 4-6 wks. Jihan Landon MD Contraception after Delivery: Foam/Condoms
--- NOTE | 2018-06-29 08:18 | OBPPN ---
Datetime: 06/29/2018 06:00 PP Pain Prov: Within normal limits PP Nausea Prov: Denies PP Flatus Prov: Yes PP BM Prov: Yes PP Breasts Prov: Not Done PP Heart Prov: Normal PP Lungs Prov: Normal PP Abdomen/Uterus Prov: Normal PP Lochia Prov: Normal PP Vulva/Perineum Prov: Not Done PP CVA Tenderness Prov: Not Done PP C/S Incision Prov: Not Applicable PP Progress Prov: Normal PP Impression Prov: Normal progression PP Plan Prov: Discharge PP Progress Note Prov: S: 43 y/o female doing well on PPD2. Tolerating PO diet, ambulating and w/out difficulties. Lochia like menses. No breast feeding difficulties. Passing gas and BM. O:Physical exam: Gen: lying in bed comfortably Heart: S1S2 present, RRR Lungs: normal breathing pattern, clear to auscultation bilaterally Abd: normal bowel sounds, soft, non-tender, fudus firm at umbilicus. Extremities: no swelling/erythema/tenderness Psych: appropriate mood, good eye contact A/P: 43 year old female doing well on PPD2 1. Continue orders 2. Ibuprofen 600 mg PO Q6H PRN 3. Regular diet 4. Encourage ambulation/ 5. Discharge today Case discussed with attending Tracey Coombs pgyi Attending addendum: I saw and examined the patient at bedside myself this morning. I reviewed the resident note above and agree with findings and management DC home today. preeclampsia, infection, and depression precautions given. Undecided about contraception. f/u in office in 4-6 wks. Jihan Landon MD Vital Signs Provider PP: Reviewed; Within Normal Limits
[2018-06-29 21:38] VITALS: BP 116/69; PULSE 75; RESP 20; TEMP 97.7; O2SAT 100
== END 2018-06-29 13:20 | disposition home or self-care (01) | DRG 560 ==
LOC: H.L&D 09:16 → UNDOADMIN 09:16 → H.L&D 09:23 → H.OB/GYN 18:27
PROVIDERS: ADMIT Obstetrics & Gynecology Gynecology; ATTEND Obstetrics & Gynecology Gynecology
PROC: 4A1HXCZ Monitoring of Products of Conception, Cardiac Rate, External Approach (ICD-10-PCS; principal; 2018-06-27)
PROC: 10E0XZZ Delivery of Products of Conception, External Approach (ICD-10-PCS; 2018-06-27)
DX: O99.214 Obesity complicating childbirth (principal); E66.9 Obesity, unspecified; Z37.0 Single live birth; Z3A.39 39 weeks gestation of pregnancy